=== PATIENT | male | born 1960 | race Caucasian/White ===

== ENCOUNTER 2025-01-08 17:25 | Emergency (ER) | payer MEDICAID ==
[~2025-01-08] VITALS: Ht 188 cm; Wt 75.0 kg
[~2025-01-08 17:25] MED LIST: IBUP-1984 PO
[2025-01-08 17:30] VITALS: BP 110/42; PULSE 85; RESP 18; O2SAT 96
--- NOTE | 2025-01-08 17:47 | Physician Documentation ---
History of Present Illness ~ Chief Complaint: Foot pain Stated Complaint: FOOT PAIN Time Seen by MD: 18:19 Primary Medical Doctor: OOT Mode of Arrival: EMS HPI This is a 64-year-old male who was brought in by EMS for bilateral foot pain, on questioning patient is requesting something to eat otherwise and reports no other symptoms or concerns. Tetanus witin 5 years: Yes Medication Reconciliation Allergies: Coded Allergies: No Known Allergies (Unverified , 01/08/25) Scheduled PRN Ibuprofen* (Motrin*), 800 MG PO BID PRN, (Reported) Past Medical History Past Medical History: Chronic Pain, Chronic Back Pain Past Surgical History: no surgical history Alcohol Use: Alcoholic Drug Use: heroin Lives with: Family Lives In: Home Occupation: disabled Review of Systems ROS Foot pain and hungry as stated above in the HPI, otherwise all systems are reviewed and negative. Physical Exam Vital Signs: Source: Temporal, Heart Rate: 85, Respiratory Rate: 18, BP: 110/42, Pulse Oximetry: 96, Weight: 75.000 Physical Exam VITALS: Reviewed and as above. GENERAL: Alert, nontoxic appearing, no apparent distress. RESPIRATORY: No increased work of breathing, no respiratory distress, speaking in full clear sentences Progress Results/Orders Results/Orders Vital Signs 01/08/25 17:30 Pulse 85 Resp 18 B/P (MAP) 110/42 Pulse Ox 96 Medical Decision Making Findings MSE performed in triage and patient returned to ED lobby by nursing staff. As patient was requesting food he was advised that once he was in emergency department room and a more complete exam completed he would be provided a meal. Patient was seen ambulating with a steady nonpainful non limping gait unassisted in the ER lobby, patient ask the retail security professional for food and became upset when he was not provided food, patient began ambulating out of the ER lobby I called the patient multiple times and asked him if he still wanted to be seen and he continued to ambulate without answering my question. At this time I have no reason to believe an acute medical condition exists and patient was reporting no symptoms. I believe the purpose of the patient's ER visit today was to obtain food as he appears to be un housed. Foot Diff Dx:Considerations: Include: Abrasion, Arthritis, Cellulitis, Contusion, Dislocation, DJD, Fracture-metatarsal, Fracture-phalynx, Fracture- tarsal, Gout, Ingrown toenail, Neurovascular injury, Puncture, Sprain, Septic, Subungual hematoma, Ulcer Departure Disposition: 07 LEFT AWOL/ELOPED Impression: Primary Impression: Foot pain Qualified Codes: M79.671 - Pain in right foot; M79.672 - Pain in left foot Condition: Improved Referrals: NO PRIMARY CARE PROVIDER (PCP) Signature Scribe Signature: No scribe Attestation: The note accurately reflects work and decisions made by me.GIAN Celestin 01/08/25 21:13 RAJEEV GUSTAFSON Jan 08, 2025 17:47
[2025-01-09] MEDS ORDERED: NAPR-56 PO (12:24)
== END 2025-01-08 19:46 | disposition left against medical advice (07) ==
LOC: ER 17:26
DX: M79.671 Pain in right foot (principal); M79.672 Pain in left foot
CPT/HCPCS: 99283

== ENCOUNTER 2025-01-09 11:37 | Emergency (ER) | payer MEDICAID ==
[~2025-01-09] VITALS: Ht 188 cm; Wt 63.6 kg
[2025-01-09 11:46] VITALS: BP 127/83; PULSE 87; RESP 18; TEMP 97.6; O2SAT 98
--- NOTE | 2025-01-09 12:18 | Physician Documentation ---
History of Present Illness ~ Chief Complaint: Foot pain Stated Complaint: SORE FEET Time Seen by MD: 12:01 Primary Medical Doctor: [facility] This 64-year-old on housed male presents with bilateral foot pain, patient reports pain has been present for the past six months patient reports he was taking medicine for his foot pain however he lost the bag continuing the medication in his unable to remember what medication this was. Patient denies past medical history other than he was taking a medication for blood pressure. Patient reports no other acute symptoms or concerns. Tetanus witin 5 years: Yes Medication Reconciliation Allergies: Coded Allergies: No Known Allergies (Unverified , 01/08/25) Scheduled Naproxen (Naproxen), 1 TAB PO Q12H Scheduled PRN Ibuprofen* (Motrin*), 800 MG PO BID PRN, (Reported) Past Medical History Past Medical History: Hypertension, Chronic Pain, Chronic Back Pain Past Surgical History: no surgical history Alcohol Use: Alcoholic Drug Use: heroin Lives with: Family Lives In: Home Occupation: disabled Review of Systems ROS Bilateral foot pain as stated above in the HPI, otherwise all systems are reviewed and negative. Physical Exam Vital Signs: Temperature: 97.6, Source: Temporal, Heart Rate: 87, Respiratory Rate: 18, BP: 127/83, Pulse Oximetry: 98, Weight: 63.640 Physical Exam VITALS: Reviewed and as above. GENERAL: Alert, disheveled, nontoxic appearing, no apparent distress. RESPIRATORY: No increased work of breathing, no respiratory distress, speaking in full clear sentences MUSCULOSKELETAL: Bilateral feet tender to palpation to plantar surfaces, no edema, no erythema, no ecchymosis, no deformity Progress Results/Orders Results/Orders Completed Orders - RAJEEV GUSTAFSON Naproxen Tablet (Naprosyn Tablet) (01/09/25 12:25) Vital Signs 01/09/25 11:46 Temp 97.6 Pulse 87 Resp 18 B/P (MAP) 127/83 Pulse Ox 98 Medical Decision Making Findings This 64-year-old on housed male presented to the emergency department due to six months of bilateral foot pain worse in the soles of his feet, on exam he had tenderness to palpation to bilateral soles of feet with no evidence of swelling, erythema, deformity, ecchymosis, or infection. Capillary refill and pupils intact. Remainder of physical exam was benign. Vital signs stable and patient medicated for pain. Patient is appropriate for outpatient follow up and directed to [facility] to establish primary care. Patient provided prescription for naproxen for chronic foot pain. Patient provided a meal prior discharge and provided return to care precautions. Foot Diff Dx:Considerations: Include: Abrasion, Arthritis, Cellulitis, Contusion, DJD, Gout, Ingrown toenail, Laceration, Neurovascular injury, Sprain, Septic, Ulcer Departure Time of Disposition: 12:24 Disposition: 01 HOME / SELF CARE / HOMELESS Impression: Primary Impression: Foot pain Qualified Codes: M79.671 - Pain in right foot; M79.672 - Pain in left foot Condition: Improved Discharge Instructions: Foot Pain Additional Instructions: Keep your feet clean and dry, change your socks daily (you were provided an extra changes socks to help facilitate this), please use the prescribed naproxen as needed for foot pain. Please follow up with your primary care provider with the [facility] in the next few days for further workup and management of your chronic foot pain. Please return to the emergency department for any new or worsening concerning symptoms. Referrals: NO PRIMARY CARE PROVIDER (PCP) Prescriptions Naproxen (Naproxen) 500 Mg Tablet 1 TAB PO Q12H, #20 TAB Prov: RAJEEV GUSTAFSON 01/09/25 Education Educated: Patient Educated regarding: diagnosis, treatment, prognosis, need for follow up Signature Scribe Signature: No scribe Attestation: The note accurately reflects work and decisions made by me.GIAN Celestin 01/09/25 21:18 RAJEEV GUSTAFSON Jan 09, 2025 12:18
[2025-01-09] MEDS ORDERED: NAPR-56 PO (12:24)
[2025-01-09] MEDS: naproxen 500mg tablet PO ONE (12:42)
[2025-01-10] MEDS ORDERED: CIPR-255 PO (15:49)
[2025-01-10] MEDS ORDERED: DOXY-1 PO (15:49)
== END 2025-01-09 12:46 | disposition home or self-care (01) ==
LOC: ER 11:38
DX: M79.672 Pain in left foot (principal); M79.671 Pain in right foot; I10 Essential (primary) hypertension
CPT/HCPCS: 99282

== ENCOUNTER 2025-01-10 01:11 | Emergency (ER) | payer MEDICAID, OTHER ==
[~2025-01-10] VITALS: Ht 188 cm; Wt 63.6 kg
[~2025-01-10 01:11] MED LIST changes: +NAPR-56 PO
[2025-01-10 01:16] VITALS: BP 130/87; PULSE 82; RESP 15; TEMP 96.7; O2SAT 100
--- NOTE | 2025-01-10 01:19 | Physician Documentation ---
History of Present Illness ~ Chief Complaint: Foot pain Stated Complaint: FEET PAIN Time Seen by MD: 01:18 OK to notify your PCP?: Yes Primary Medical Doctor: none Source: patient Mode of Arrival: Ambulatory Exam Limitations: no limitations HPI 64-year-old homeless male, who has been seen two other times in the last 24 hours for bilateral foot pain and requested food, returns with reports of left toe pain. 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 Patient ambulated into the ED. When questioned more he admits he would like something to eat." He denies any fever. Tetanus witin 5 years: Yes Medication Reconciliation Allergies: Coded Allergies: No Known Allergies (Unverified , 01/10/25) Scheduled Naproxen (Naproxen), 1 TAB PO Q12H Scheduled PRN Ibuprofen* (Motrin*), 800 MG PO BID PRN, (Reported) Past Medical History Past Medical History: Hypertension, Chronic Pain, Chronic Back Pain Past Surgical History: no surgical history Alcohol Use: Alcoholic Drug Use: heroin Lives with: Family Lives In: Home Occupation: disabled Review of Systems All Other Systems at this time: Reviewed and Negative ROS As stated above in the HPI, otherwise all systems are reviewed and negative. Physical Exam Vital Signs: RN Vital Signs have been reviewed: Yes, Temperature: 96.7, Source: Temporal, Heart Rate: 82, Respiratory Rate: 15, BP: 130/87, Pulse Oximetry: 100, Weight: 63.600 Pulse Oximetry Reflects: adequate oxygenation Physical Exam General: The patient is well developed, well nourished, nontoxic appearing and is in no acute distress. Skin: [place], warm and dry with no rashes. HEENT: Head was normocephalic and atraumatic. Extremities: No cyanosis, clubbing or edema. The patient moves all extremities. Pulses were equal and symmetric. Neurologic: Motor and sensation grossly intact. Cranial nerves II-XII grossly intact. A & O x4. Ambulatory. Psychologic: Normal mood and affect. No agitation. Progress Results/Orders Reviewed/noted all lab results: Yes Results/Orders Vital Signs 01/10/25 01:16 Temp 96.7 Pulse 82 Resp 15 B/P (MAP) 130/87 Pulse Ox 100 Re-Evaluation Re-Evaluation : Re-Evaluation: Resolved Progress Patient was seen and examined. Patient admitted that he had no medical complaints that he was here for food. He denies any other complaints at this time. He was wondering if he could have something to drink or eat. Patient was given reassurance and discharged home. We discussed social service issues including the [place]. Medical Decision Making Additional info obtained from: old records (2 other visits in 24 hours) General Diff Dx:Considerations: Include: Abrasion, Contusion, Other Departure Time of Disposition: Disposition: HOME / SELF CARE / HOMELESS Impression: Primary Impression: Hungry Qualified Codes: T73.0XXA - Starvation, initial encounter Additional Impression: Homelessness Condition: Stable Discharge Instructions: General Discharge Instructions Additional Instructions: Return to the ER for other concerns. Education Educated: Patient Educated regarding: diagnosis, treatment, need for follow up Signature Scribe Signature: Scribed for Candido Deluna MD by Tadeo Hoang . 01/10/25 01:22 Attestation: The note accurately reflects work and decisions made by me.Candido Deluna MD 01/10/25 01:19 CANDIDO DELUNA MD January 10, 2025 01:19 TADEO EVANS January 10, 2025 01:26
[2025-01-10] MEDS ORDERED: CIPR-255 PO (15:49)
[2025-01-10] MEDS ORDERED: DOXY-1 PO (15:49)
== END 2025-01-10 01:29 | disposition home or self-care (01) ==
LOC: ER 01:11
DX: T73.0XXA Starvation, initial encounter (principal); I10 Essential (primary) hypertension; G89.29 Other chronic pain; M54.9 Dorsalgia, unspecified; F11.90 Opioid use, unspecified, uncomplicated; F10.90 Alcohol use, unspecified, uncomplicated; Z59.00 Homelessness unspecified; Z79.899 Other long term (current) drug therapy; Y90.9 Presence of alcohol in blood, level not specified; X58.XXXA Exposure to other specified factors, initial encounter
CPT/HCPCS: 99281

== ENCOUNTER 2025-01-10 13:15 | Emergency (ER) | payer MEDICAID, OTHER ==
[~2025-01-10] VITALS: Ht 185.4 cm; Wt 63.5 kg
[2025-01-10 13:20] VITALS: BP 153/74; PULSE 115; RESP 16; O2SAT 95
--- NOTE | 2025-01-10 13:49 | Physician Documentation ---
History of Present Illness ~ Chief Complaint: Wound Re-Check Stated Complaint: REQUESTING FEET TO BE CLEANED Time Seen by MD: 13:23 Primary Medical Doctor: none HPI This 64-year-old un housed male presents back to the emergency department with bilateral foot pain, patient reports he was unable to pickling solution maker his previously prescribed naproxen for foot pain, patient is requesting his feet me cleaned as well. Patient reports no other acute symptoms or concerns. Tetanus within 5 years?: Yes Medication Reconciliation Allergies: Coded Allergies: No Known Allergies (Unverified , 01/10/25) Scheduled Ciprofloxacin HCl (Ciprofloxacin HCl), 1 TAB PO Q12H Doxycycline Hyclate (Doxycycline Hyclate), 1 CAP PO Q12H Naproxen (Naproxen), 1 TAB PO Q12H Scheduled PRN Ibuprofen* (Motrin*), 800 MG PO BID PRN, (Reported) Past Medical History Past Medical History: Hypertension, Chronic Pain, Chronic Back Pain Past Surgical History: no surgical history Alcohol Use: Alcoholic Drug Use: heroin Lives with: Family Lives In: Home Occupation: disabled Review of Systems ROS Bilateral foot pain as stated above in the HPI, otherwise all systems are reviewed and negative. Physical Exam Vital Signs: Temperature: 98.9, Source: Oral, Heart Rate: 115, Respiratory Rate: 16, BP: 153/74, Pulse Oximetry: 95, Weight: 63.500 Oxygen Flow Rate: 0 Physical Exam VITALS: Reviewed and as above. GENERAL: Alert, nontoxic appearing, no apparent distress. RESPIRATORY: No increased work of breathing, no respiratory distress, speaking in full clear sentences GI: Nondistended MUSCULOSKELETAL:Bilateral feet tender to palpation, SKIN: On the skin of plantar aspect of left foot there is some stuck on material versus a scab over a wound. Progress Progress Note After cleaning stuck on material to the bottom of left foot, it appears that this was fecal matter in what appears to be a wound to the area without erythema, swelling, focal tenderness, or discharge. On further questioning patient reports that this wound has been present for at least three months. Results/Orders Results/Orders Orders - RAJEEV GUSTAFSON Foot, Complete (3vw Min) (01/10/25 14:46) Wound Care Orders (01/10/25 14:39) Completed Orders - RAJEEV GUSTAFSON Naproxen Tablet (Naprosyn Tablet) (01/10/25 13:50) Foot, Complete (3vw Min) (01/10/25 14:46) Tetanus/Pertuss/Diph Acell/Pf (Boostrix (01/10/25 14:40) Cbc/Diff (01/10/25 15:04) BMP (01/10/25 15:04) Ciprofloxacin Tablet (Cipro Tablet) (01/10/25 15:05) Doxycycline 100mg Capsule (Vibramycin 10 (01/10/25 15:04) Medications Received in ER Medications (Trade) Dose Ordered Sig/Rayo Route PRN Reason Start Time Stop Time Status Last Admin Dose Admin (Naprosyn tablet) 500 mg ONCE ONCE PO 01/10/25 13:50 01/10/25 13:51 DC 01/10/25 14:15 500 MG (Cipro tablet) 500 mg ONCE ONCE PO 01/10/25 15:05 01/10/25 15:08 DC 01/10/25 15:39 500 MG (VIBRAMYCIN 100mg capsule) 100 mg ONCE STAT PO 01/10/25 15:04 01/10/25 15:09 DC 01/10/25 15:38 100 MG Vital Signs 01/10/25 01/10/25 13:20 16:57 Temp 98.9 98.9 Pulse 115 Resp 16 B/P (MAP) 153/74 Pulse Ox 95 O2 Flow Rate 0 Laboratory Tests Test 01/10/25 15:19 White Blood Count 8.4 Red Blood Count 3.95 L Hemoglobin 11.2 L Hematocrit 34.4 L Mean Corpuscular Volume 87.2 Mean Corpuscular Hemoglobin 28.3 Mean Corpuscular Hemoglobin Concent 32.5 L Red Cell Distribution Width 15.9 H Platelet Count 414 Mean Platelet Volume 6.6 L Neutrophils (%) (Auto) 76.6 H Lymphocytes (%) (Auto) 9.5 L Monocytes (%) (Auto) 11.9 Eosinophils (%) (Auto) 1.4 Basophils (%) (Auto) 0.6 Neutrophils # (Auto) 6.4 Lymphocytes # (Auto) 0.8 L Monocytes # (Auto) 1.0 H Eosinophils # (Auto) 0.1 Basophils # (Auto) 0.0 CBC Comment Sodium Level 143 Potassium Level 3.4 L Chloride Level 106 Carbon Dioxide Level 31.8 Anion Gap 5 L Blood Urea Nitrogen 23 H Creatinine 0.58 L Estimated GFR/1.73 m2 > 90 BUN/Creatinine Ratio 39.7 H Glucose Level 110 H Calcium Level 8.9 Albumin 2.3 L Chemistry Comments EKG/XRAY/CT/US/VASC/MRI Bone/Soft Tissue X-Ray (Ext.) : Additional Comment CLINICAL INDICATION: Deep chronic wound to foot TECHNIQUE: 3 radiographic views of the left foot were obtained. Comparison: None FINDINGS/IMPRESSION: There is no evidence of acute fracture or dislocation. Postop medial osteotomy 1st metatarsal The visualized joint space is well maintained. The alignment is anatomical. There is no radiopaque foreign body. Electronically Signed by:GARY BENITEZ Jr. DO Date & Time: 01/10/25 1513 Dictated by: GARY BENITEZ Jr. DO Dictation date and time: 01/10/25 1445 I have reviewed and agree with the radiology report. I have reviewed and interpreted the imaging as: No fracture or dislocation, no radiopaque foreign body Medical Decision Making Findings This 64-year-old male presented with bilateral foot pain, with what appears to be a chronic poor healing wound observed to the left forefoot, on questioning patient reports that this wound has been present for approximately three months. The wound to the forefoot did appear to be covered in some stuck on material that appears to be a mixture of dirt and possible feces, this was removed and the wound was explored, wound does not appear to be infected as there was no swelling, erythema, or drainage from the wound additionally an x-ray of the foot did not demonstrate a foreign were obtained body or evidence of osteomyelitis. This chronic wound does appear to be slowly healing and patient will be referred to outpatient wound care for further evaluation, as the material removed from the wound appears to be at least partially fecal matter patient will be placed on dual antibiotic coverage. It was reassuring patient's labs did not demonstrate evidence of infection or metabolic derangement. Remainder of physical exam was benign. Was mildly tachycardic on triage though I do attribute this to patient being mildly agitated and argumentative with staff when he presented insisting on getting a meal before being seen though being reportedly told that he must be seen by provider prior to being provided a meal, otherwise patient's vital signs were stable including patient being afebrile. Patient is appropriate for outpatient follow up. Patient provided careful return to care precautions indirect to the nearest pharmacy to pickling solution maker his prescriptions including a previously prescribed pain medication. Patient was provided a meal and offered bus voucher by nursing staff. Differential Dx:Considerations: Include: Abscess, Cellulitis, Dressing change, Healing wound, Other (Osteomyelitis, sepsis, septicemia, malingering, septic joint) Departure Time of Disposition: 14:38 Disposition: HOME / SELF CARE / HOMELESS Impression: Primary Impression: Chronic wound Additional Impression: Foot pain Qualified Codes: M79.671 - Pain in right foot; M79.672 - Pain in left foot Condition: Improved Discharge Instructions: Wound Care, Adult Additional Instructions: Keep the wound on your foot clean, dry, and covered. Please follow up with outpatient wound care about the wound on your left foot. Please take the antibiotics as prescribed. Continue to use the previously prescribed naproxen for your foot pain. Please follow up with your primary care provider or the [facility] in the next few days. Please return to the emergency department for any new or worsening concerning symptoms. Referrals: NO PRIMARY CARE PROVIDER (PCP) [facility] Prescriptions Naproxen (Naproxen) 500 Mg Tablet 1 TAB PO Q12H, #20 TAB Prov: RAJEEV GUSTAFSON 01/10/25 Doxycycline Hyclate (Doxycycline Hyclate) 100 Mg Capsule 1 CAP PO Q12H for 7 Days, #14 CAP Prov: RAJEEV GUSTAFSON 01/10/25 Ciprofloxacin HCl (Ciprofloxacin HCl) 500 Mg Tablet 1 TAB PO Q12H for 7 Days, #14 TAB Prov: RAJEEV GUSTAFSON 01/10/25 Education Educated: Patient Educated regarding: diagnosis, treatment, prognosis, need for follow up Signature Scribe Signature: No scribe Attestation: The note accurately reflects work and decisions made by me.GIAN Celestin 01/10/25 21:48 RAJEEV GUSTAFSON January 10, 2025 13:49
[2025-01-10] MEDS: naproxen 500mg tablet PO ONE (14:15)
--- NOTE | 2025-01-10 15:15 | RADIOLOGY REPORT ---
CLINICAL INDICATION: Deep chronic wound to foot TECHNIQUE: 3 radiographic views of the left foot were obtained. Comparison: None FINDINGS/IMPRESSION: There is no evidence of acute fracture or dislocation. Postop medial osteotomy 1st metatarsal The visualized joint space is well maintained. The alignment is anatomical. There is no radiopaque foreign body.
[2025-01-10] MEDS: DOXYCYCLINE 100MG CAPSULE PO STA (15:38)
[2025-01-10] MEDS: ciprofloxacin 250mg tablet PO ONE (15:39)
[2025-01-10] MEDS: TETanus/Pertussis (Acell)/Diphther VAC/PF (Tdap-Adult) 0.5ml syringe IMVAC ONE (15:40)
[2025-01-10 15:44] LABS: ALBUMIN 2.3 G/DL (3.4-5.0); ANION GAP 5 (8-16); BLOOD UREA NITROGEN 23 MG/DL (7-18); BUN/CREATININE RATIO 39.7 (10.0-20.0); CALCIUM 8.9 MG/DL (8.5-10.1); CHLORIDE 106 MMOL/L (99-107); CREATININE 0.58 MG/DL (0.60-1.10); GLUCOSE 110 MG/DL (70-104); POTASSIUM 3.4 MMOL/L (3.5-5.1); SODIUM 143 MMOL/L (135-145); TOTAL CARBON DIOXIDE 31.8 MMOL/L (24-32); eCRCL 114 ML/MIN; eGFR > 90 ML/MIN
[2025-01-10] MEDS ORDERED: CIPR-255 PO (15:49)
[2025-01-10] MEDS ORDERED: DOXY-1 PO (15:49)
[2025-01-10 16:25] LABS: BASOPHILS % (AUTO) 0.6 % (0-1); EOSINOPHILS # (AUTO) 0.1 X10'3 (0-0.9); EOSINOPHILS % (AUTO) 1.4 % (0-6); HEMATOCRIT 34.4 % (42.0-52.0); HEMOGLOBIN 11.2 g/dl (14.0-17.9); LYMPHOCYTES # (AUTO) 0.8 X10'3 (1.1-4.8); LYMPHOCYTES % (AUTO) 9.5 % (21-51); MEAN CORPUSCULAR HEMOGLOBIN 28.3 PG (27.0-31.0); MEAN CORPUSCULAR HGB CONC 32.5 g/dL (33.0-36.5); MEAN CORPUSCULAR VOLUME 87.2 FL (78-98); MEAN PLATELET VOLUME 6.6 FL (7.4-10.4); MONOCYTES % (AUTO) 11.9 % (2-12); NEUTROPHILS # (AUTO) 6.4 X10'3 (1.8-7.7); NEUTROPHILS % (AUTO) 76.6 % (42-75); PLATELET COUNT 414 X10'3 (140-440); RED BLOOD COUNT 3.95 X10'6 (4.70-6.10); RED CELL DISTRIBUTION WIDTH 15.9 % (11.5-14.5); WHITE BLOOD COUNT 8.4 X10'3 (4.5-11.0)
[2025-01-10 16:57] VITALS: TEMP 98.9
== END 2025-01-10 16:59 | disposition home or self-care (01) ==
LOC: ER 13:16
DX: M79.672 Pain in left foot (principal); G89.29 Other chronic pain; M54.9 Dorsalgia, unspecified; I10 Essential (primary) hypertension; F11.90 Opioid use, unspecified, uncomplicated; F10.90 Alcohol use, unspecified, uncomplicated; Z59.00 Homelessness unspecified; Z79.899 Other long term (current) drug therapy; Y90.9 Presence of alcohol in blood, level not specified
CPT/HCPCS: 36415; 73630; 80048; 85025; 99284

== ENCOUNTER 2025-01-12 13:09 | Emergency (ER) | payer MEDICAID ==
[~2025-01-12] VITALS: Ht 185.4 cm; Wt 64.7 kg
[~2025-01-12 13:09] MED LIST changes: +CIPR-255 PO; +DOXY-1 PO
[2025-01-12 13:33] VITALS: BP 129/76; PULSE 108; RESP 18; TEMP 96.8; O2SAT 96
--- NOTE | 2025-01-12 13:46 | ELECTROCARDIOGRAPH REPORT ---
[facility] Test Date: 2025-01-12 Test Time: 13:43:59 Pat Name: AGUEDAHenrietta MEEHAN Department: EMERGENCY ROOM Patient ID: [id number] Room: Gender: M Transportation Specialist: STUDENT : 1960 Requested By: RADHA GIBBONS Order Number: [id number] Reading MD: Dr. Candido Kinney Measurements Intervals [place] Rate: 109 P: 81 WV: 164 QRS: -70 QRSD: 133 T: 109 QT: 359 QTc: 484 Interpretive Statements Sinus tachycardia Right bundle branch block LVH with IVCD and secondary repol abnrm Borderline prolonged QT interval Electronically Signed On 01-12-2025 18:45:[address] Candido Kinney Please click the below link to view image of tracing.
[2025-01-12 14:09] LABS: BASOPHILS # (AUTO) 0.1 X10'3 (0-0.2); BASOPHILS % (AUTO) 0.7 % (0-1); EOSINOPHILS # (AUTO) 0.2 X10'3 (0-0.9); EOSINOPHILS % (AUTO) 1.8 % (0-6); HEMOGLOBIN 12.4 g/dl (14.0-17.9); LYMPHOCYTES # (AUTO) 1.1 X10'3 (1.1-4.8); LYMPHOCYTES % (AUTO) 11.2 % (21-51); MEAN CORPUSCULAR HEMOGLOBIN 28.6 PG (27.0-31.0); MEAN CORPUSCULAR HGB CONC 32.7 g/dL (33.0-36.5); MEAN CORPUSCULAR VOLUME 87.5 FL (78-98); MEAN PLATELET VOLUME 6.2 FL (7.4-10.4); MONOCYTES # (AUTO) 0.8 X10'3 (0-0.9); MONOCYTES % (AUTO) 8.2 % (2-12); NEUTROPHILS # (AUTO) 7.4 X10'3 (1.8-7.7); NEUTROPHILS % (AUTO) 78.1 % (42-75); PLATELET COUNT 457 X10'3 (140-440); RED BLOOD COUNT 4.35 X10'6 (4.70-6.10); RED CELL DISTRIBUTION WIDTH 16.2 % (11.5-14.5); WHITE BLOOD COUNT 9.5 X10'3 (4.5-11.0)
--- NOTE | 2025-01-12 14:25 | RADIOLOGY REPORT ---
CHEST RADIOGRAPH Indication: CP Technique: Single frontal view of the chest was obtained Comparison: None FINDINGS: Lines and Tubes: None Lungs: 5.9 x 5.4 cm masslike density of the left mid lung zone. Hyperinflation of the lungs. Pleura: No effusion. No pneumothorax. Cardiomediastinal contours: Unremarkable Bones: No acute osseous abnormality. IMPRESSION: 5.9 x 5.4 cm masslike density of the left mid lung zone. CT is recommended for further evaluation.
[2025-01-12 14:27] LABS: ALANINE AMINOTRANSFERASE 68 U/L (12-78); ALBUMIN 2.6 G/DL (3.4-5.0); ALBUMIN/GLOBULIN RATIO 0.5 (1.1-1.5); ALKALINE PHOSPHATASE 94 IU/L (46-116); ANION GAP 8 (8-16); ASPARTATE AMINO TRANSFERASE 72 U/L (10-37); BILIRUBIN,TOTAL 0.2 MG/DL (0.1-1.0); BLOOD UREA NITROGEN 20 MG/DL (7-18); BUN/CREATININE RATIO 30.3 (10.0-20.0); CALCIUM 9.1 MG/DL (8.5-10.1); CHLORIDE 103 MMOL/L (99-107); CREATININE 0.66 MG/DL (0.60-1.10); GLUCOSE 85 MG/DL (70-104); POTASSIUM 3.7 MMOL/L (3.5-5.1); SODIUM 142 MMOL/L (135-145); TOTAL PROTEIN 7.8 G/DL (6.4-8.2); eCRCL 102 ML/MIN; eGFR > 90 ML/MIN
[2025-01-12 14:34] LABS: PRO BRAIN NATRIURETIC PEPTIDE 2330 PG/ML (0-125)
== END 2025-01-12 16:42 | disposition left against medical advice (07) ==
LOC: ER 13:09
DX: R07.9 Chest pain, unspecified (principal); Z53.21 Procedure and treatment not carried out due to patient leaving prior to being seen by health care provider
CPT/HCPCS: 36415; 71045; 80053; 83880; 84484; 85025; 93005

== ENCOUNTER 2025-01-15 14:05 | Emergency (ER) | payer MEDICAID ==
[~2025-01-15] VITALS: Ht 185.4 cm; Wt 81.8 kg
[~2025-01-15 14:05] MED LIST changes: -CIPR-255 PO; -DOXY-1 PO; -IBUP-1984 PO
[2025-01-15 14:07] VITALS: BP 98/66; PULSE 114; RESP 16; TEMP 98.5; O2SAT 95
--- NOTE | 2025-01-15 14:50 | Physician Documentation ---
History of Present Illness ~ General Chief Complaint: Multiple Medical Complaints Stated Complaint: RECHECK Primary Medical Doctor: none History of Present Illness Initial Comments This 64-year-old male who is well known to the emergency department presents with multiple medical complaints including chronic foot pain and needing to meet with social research assistant for placement in a fdc house. Medication Reconciliation Allergies: Coded Allergies: No Known Allergies (Unverified , 01/15/25) Scheduled Naproxen (Naproxen), 1 TAB PO Q12H Discontinued Medications Ciprofloxacin HCl (Ciprofloxacin HCl), 1 TAB PO Q12H Discontinued Reason: patient no longer taking Doxycycline Hyclate (Doxycycline Hyclate), 1 CAP PO Q12H Discontinued Reason: patient no longer taking Ibuprofen* (Motrin*), 800 MG PO BID PRN, (Reported) Discontinued Reason: patient no longer taking Past Medical History Past Medical History: Hypertension, Chronic Pain, Chronic Back Pain Past Surgical History: no surgical history Alcohol Use: Alcoholic Drug Use: heroin Lives with: Family Lives In: Home Occupation: disabled Physical Exam Physical Exam Vital Signs: Temperature: 98.5, Heart Rate: 114, Respiratory Rate: 16, BP: 98/66, Pulse Oximetry: 95, Weight: 81.820 Physical Exam VITALS: Reviewed and as above. GENERAL: Alert, nontoxic appearing, no apparent distress. HEENT: RESPIRATORY: No increased work of breathing, no respiratory distress, speaking in full clear sentences CHEST: CV: BACK: GI: Nondistended MUSCULOSKELETAL: SKIN: NEURO: PSYCH: Progress Results/Orders Results/Orders Vital Signs 01/15/25 14:07 Temp 98.5 Pulse 114 Resp 16 B/P (MAP) 98/66 Pulse Ox 95 Medical Decision Making Findings MSE performed in triage and patient returned to ED lobby by nursing staff Differential Diagnosis Malingering, cellulitis, peripheral neuropathy, gravely disabled Departure Disposition: LEFT AWOL/ELOPED Impression: Primary Impression: Hungry Qualified Codes: T73.0XXD - Starvation, subsequent encounter Additional Impressions: Homelessness Chronic foot pain Qualified Codes: M79.673 - Pain in unspecified foot; G89.29 - Other chronic pain Referrals: NO PRIMARY CARE PROVIDER (PCP) Signature Scribe Signature: No scribe Attestation: The note accurately reflects work and decisions made by me.GIAN Celestin 01/16/25 04:12 RAJEEV GUSTAFSON January 15, 2025 14:50
== END 2025-01-15 17:02 | disposition left against medical advice (07) ==
LOC: ER 14:05
DX: G89.29 Other chronic pain (principal); M79.673 Pain in unspecified foot; T73.0XXA Starvation, initial encounter; Z59.00 Homelessness unspecified; I10 Essential (primary) hypertension; X58.XXXA Exposure to other specified factors, initial encounter; Y93.89 Activity, other specified; Y92.89 Other specified places as the place of occurrence of the external cause; Y99.8 Other external cause status
CPT/HCPCS: 99281

== ENCOUNTER 2025-01-15 19:22 | Emergency (ER) | payer MEDICAID ==
[~2025-01-15] VITALS: Ht 185.4 cm; Wt 65.2 kg
[2025-01-15 20:24] VITALS: BP 123/67; PULSE 117; RESP 15; TEMP 98.9; O2SAT 97
--- NOTE | 2025-01-15 21:50 | Physician Documentation ---
History of Present Illness General Chief Complaint: See Chief Complaint Stated Complaint: ETOH Time Seen by MD: 21:10 Primary Medical Doctor: none History of Present Illness Initial Comments This is a 64-year-old male who is well known to the Department, patient reports that he was recently discharged after a hospital stay and was told to return to talk to a case assistant about placement in a prison home, reports he has no new medical concerns and only reports chronic pain which he has been prescribed medications for, patient was seen earlier today though eloped from the lobby after being seen in triage for the same complaint. Medication Reconciliation Allergies: Coded Allergies: No Known Allergies (Unverified , 01/15/25) Scheduled Naproxen (Naproxen), 1 TAB PO Q12H Discontinued Medications Ciprofloxacin HCl (Ciprofloxacin HCl), 1 TAB PO Q12H Discontinued Reason: patient no longer taking Doxycycline Hyclate (Doxycycline Hyclate), 1 CAP PO Q12H Discontinued Reason: patient no longer taking Ibuprofen* (Motrin*), 800 MG PO BID PRN, (Reported) Discontinued Reason: patient no longer taking Past Medical History Past Medical History: Hypertension, Chronic Pain, Chronic Back Pain Past Surgical History: no surgical history Smoking: Cigarettes Alcohol Use: Alcoholic Drug Use: heroin Lives with: Family Lives In: Home Occupation: disabled Review of Systems ROS As stated above in the HPI, otherwise all systems are reviewed and negative. Physical Exam Physical Exam Vital Signs: Temperature: 98.9, Source: Oral, Heart Rate: 117, Respiratory Rate: 15, BP: 123/67, Pulse Oximetry: 97, Weight: 65.180 Oxygen Flow Rate: 0 Physical Exam VITALS: Reviewed and as above. GENERAL: Alert, nontoxic appearing, no apparent distress. RESPIRATORY: No increased work of breathing, no respiratory distress, speaking in full clear sentences Progress Results/Orders Results/Orders Vital Signs 01/15/25 20:24 Temp 98.9 Pulse 117 Resp 15 B/P (MAP) 123/67 Pulse Ox 97 O2 Flow Rate 0 Medical Decision Making Findings This 64-year-old male presented back to the emergency department to talk to a case assistant about placement in a prison house, however he presented after hours, patient has been seen earlier today and was waiting in the emergency department lobby to be seen for the same concern during business hours. Patient advised that he would need to return during business hours if he wanted to talk to the case assistant. Patient was very upset and disruptive with nursing staff wishing to leave after being told he would not be able to meet with case assistant today. As patient reported no new concerns or symptoms plan was for him to be discharged to follow up as previously directed, though on review of patient's previous notes it was discovered patient did leave AMA and has history of PE, as patient did not wait for records review or discharge paperwork patient has eloped. Differential Diagnosis Chronic foot pain, malingering, pulmonary embolism, OR, gravely disabled Departure Disposition: LEFT AWOL/ELOPED Impression: Primary Impression: Homelessness Additional Impression: Hungry Qualified Codes: T73.0XXD - Starvation, subsequent encounter Condition: Stable Referrals: NO PRIMARY CARE PROVIDER (PCP) Signature Scribe Signature: No scribe Attestation: The note accurately reflects work and decisions made by me.GIAN Celestin 01/16/25 03:49 RAJEEV GUSTAFSON January 15, 2025 21:50
== END 2025-01-16 01:18 | disposition left against medical advice (07) ==
LOC: ER 19:22
DX: T73.0XXA Starvation, initial encounter (principal); I10 Essential (primary) hypertension; F10.90 Alcohol use, unspecified, uncomplicated; F17.210 Nicotine dependence, cigarettes, uncomplicated; Z59.00 Homelessness unspecified; X58.XXXA Exposure to other specified factors, initial encounter; Y90.9 Presence of alcohol in blood, level not specified
CPT/HCPCS: 99284

== ENCOUNTER 2025-04-03 19:10 | Emergency (ER) | payer MEDICAID ==
[2025-04-04] MEDS ORDERED: SULF1TAB49 PO (01:44)
[2025-04-04] MEDS ORDERED: NAPR-56 PO (01:44)
== END 2025-04-03 20:46 | disposition left against medical advice (07) ==
LOC: ER 19:10
DX: Z00.8 Encounter for other general examination (principal); Z53.21 Procedure and treatment not carried out due to patient leaving prior to being seen by health care provider

== ENCOUNTER 2025-04-03 22:15 | Emergency (ER) | payer MEDICAID ==
[~2025-04-03] VITALS: Ht 185.4 cm; Wt 63.6 kg
[2025-04-03 22:48] VITALS: BP 139/73; PULSE 89; RESP 16; O2SAT 95
--- NOTE | 2025-04-04 01:37 | Physician Documentation ---
History of Present Illness ~ Chief Complaint: Foot pain Stated Complaint: FEET PAIN Time Seen by MD: 01:36 OK to notify your PCP?: Yes Primary Medical Doctor: none Source: patient, RN/MD, EMS, RN notes reviewed, EMS notes reviewed, old records Mode of Arrival: EMS Exam Limitations: no limitations HPI 65 year old male seen in bed 18 presents to the emergency department for the complaints of bilateral foot pain that has been present for three days. He states he is homeless and his feet hurt on the bottom when he is walking. Tetanus witin 5 years: Yes Medication Reconciliation Allergies: Coded Allergies: No Known Allergies (Unverified , 04/03/25) Scheduled Naproxen (Naproxen), 1 TAB PO Q12H Naproxen (Naproxen), 1 TAB PO Q12H Sulfamethoxazole/Trimethoprim (Bactrim Ds Tablet), 1 TAB PO Q12H Past Medical History Past Medical History: Hypertension, Chronic Pain, Chronic Back Pain Past Surgical History: no surgical history Smoking Status: Current every day smoker Alcohol Use: Alcoholic Drug Use: heroin Lives with: Family Lives In: Home Occupation: disabled Review of Systems All Other Systems at this time: Reviewed and Negative ROS As stated above in the HPI, otherwise all systems are reviewed and negative. Physical Exam Vital Signs: RN Vital Signs have been reviewed: Yes, Temperature: 97.8, Source: Temporal, Heart Rate: 89, Respiratory Rate: 16, BP: 139/73, Pulse Oximetry: 95, Weight: 63.600 Oxygen Flow Rate: 0 Pulse Oximetry Reflects: adequate oxygenation Physical Exam General: The patient is well developed, well nourished, nontoxic appearing and is in no acute distress. Skin: [place], warm and dry with no rashes. HEENT: Head was normocephalic and atraumatic. Eyes - pupils equal, round, reactive to light and accommodation. Extraocular movements were intact. Conjunctivae were nonicteric. Ears - bilateral tympanic membranes were normal. The mouth and oropharynx were clear with moist mucous membranes. There were no pharyngeal exudates or erythema. Neck: Supple and nontender. There was no jugular venous distention, lymphadenopathy, thyromegaly or masses. Chest: Clear to auscultation bilaterally without wheezes, rales or rhonchi. No accessory muscle use. No dullness to percussion. Heart: Rate regular and rhythmic. S1, S2. No murmurs. Palpation of the chest wall was normal. No rubs or thrills. Abdomen: Soft, nontender and nondistended. Positive bowel sounds. No guarding or rebound. No hepatosplenomegaly or palpable masses. Extremities: Discharge from second toe on the right foot, Right great toe is amputated. No cyanosis, clubbing or edema. The patient moves all extremities. Pulses were equal and symmetric. Neurologic: Cranial nerves II-XII were intact. Sensation was intact to light touch throughout. Motor strength was 5/5 in all four extremities. Deep tendon reflexes were intact in both upper and lower extremities. Psychologic: The patient was oriented to person, place and time. The patient demonstrated appropriate judgement and insight. Progress Results/Orders Reviewed/noted all lab results: Yes Results/Orders Completed Orders - CANDIDO DELUNA MD Naproxen Tablet (Naprosyn Tablet) (04/04/25 01:45) Sulfamethox/Trimetho. Ds Tab (Septra Ds (04/04/25 01:45) Medications Received in ER Medications (Trade) Dose Ordered Sig/Rayo Route PRN Reason Start Time Stop Time Status Last Admin Dose Admin (Naprosyn tablet) 500 mg ONCE ONCE PO 04/04/25 01:45 04/04/25 01:46 DC 04/04/25 01:49 500 MG (Septra DS tab) 1 tab ONCE ONCE PO 04/04/25 01:45 04/04/25 01:46 DC 04/04/25 01:50 1 TAB Vital Signs 04/03/25 04/04/25 22:48 02:03 Temp 97.8 97.8 Pulse 89 Resp 16 B/P (MAP) 139/73 Pulse Ox 95 O2 Flow Rate 0 Re-Evaluation Re-Evaluation : Re-Evaluation: Improved Progress Patient was seen and examined. Patient is given reassurance. Patient appeared to be developing possible cellulitis on his great toe although it was not really that significant. Nevertheless he is homeless and has a difficult time seeing physicians. Patient was started on antibiotics. He received Bactrim as well as some naproxen for pain. Patient was given a prescription for the same he is feeling much better he was discharged home to follow up with his primary care physician as needed. Medical Decision Making Additional info obtained from: old records Foot Diff Dx:Considerations: Include: Abrasion, Arthritis, Cellulitis, Contusion, Dislocation, DJD, Fracture-metatarsal, Fracture-phalynx, Fracture- tarsal, Gout, Ingrown toenail, Paronychia, Puncture, Sprain, Septic, Other Departure Time of Disposition: 01:55 Disposition: 01 HOME / SELF CARE / HOMELESS Impression: Primary Impression: Bilateral foot pain Additional Impression: Cellulitis of great toe of right foot Condition: Stable Discharge Instructions: Cellulitis Referrals: NO PRIMARY CARE PROVIDER (PCP) Prescriptions Naproxen (Naproxen) 500 Mg Tablet 1 TAB PO Q12H, #20 TAB Prov: CANDIDO DELUNA MD 04/04/25 Sulfamethoxazole/Trimethoprim (Bactrim Ds Tablet) 800 Mg-160 Mg Tablet 1 TAB PO Q12H for 7 Days, #14 TAB Prov: CANDIDO DELUNA MD 04/04/25 Education Educated: Patient Educated regarding: diagnosis, treatment, prognosis Signature Scribe Signature: Scribed for Candido Deluna MD by Jose Hoang . 04/04/25 01:55 Attestation: The note accurately reflects work and decisions made by me.Candido Deluna MD 04/04/25 01:37 CANDIDO DELUNA MD Apr 04, 2025 01:37 JOSE GUNDERSON Apr 04, 2025 01:56
[2025-04-04] MEDS ORDERED: SULF1TAB49 PO (01:44)
[2025-04-04] MEDS ORDERED: NAPR-56 PO (01:44)
[2025-04-04] MEDS: sulfamethoxazole/trimethoprim DS (800/160mg) tablet PO ONE (01:50)
[2025-04-04 02:03] VITALS: TEMP 97.8
== END 2025-04-04 02:08 | disposition home or self-care (01) ==
LOC: ER 22:16
DX: M79.671 Pain in right foot (principal); M79.672 Pain in left foot; L03.031 Cellulitis of right toe; F17.200 Nicotine dependence, unspecified, uncomplicated; I10 Essential (primary) hypertension
CPT/HCPCS: 99283

== ENCOUNTER 2025-04-05 17:02 | Emergency (ER) | payer MEDICAID ==
[~2025-04-05 17:02] MED LIST changes: +SULF1TAB49 PO
--- NOTE | 2025-04-05 17:25 | Physician Documentation ---
History of Present Illness ~ General Stated Complaint: SEE CHIEF COMPLAINT Time Seen by MD: 17:21 Primary Medical Doctor: none History of Present Illness Initial Comments Patient is seen today without any specific complaints. Patient was brought in by ambulance and is very agitated and begin altered gating with the security guards and was escorted out. Patient appeared to be in no acute distress. Medication Reconciliation Allergies: Coded Allergies: No Known Allergies (Unverified , 04/03/25) Scheduled Naproxen (Naproxen), 1 TAB PO Q12H Naproxen (Naproxen), 1 TAB PO Q12H Sulfamethoxazole/Trimethoprim (Bactrim Ds Tablet), 1 TAB PO Q12H Past Medical History Past Medical History: Hypertension, Chronic Pain, Chronic Back Pain Past Surgical History: no surgical history Alcohol Use: Alcoholic Drug Use: heroin Lives with: Family Lives In: Home Occupation: disabled Review of Systems Constitutional: Denies: chills, fever, weakness Eyes: Denies: pain, blurred vision ENT: Denies: ear pain, nose pain, throat pain, mouth pain Respiratory: Denies: cough, shortness of breath Cardiovascular: Denies: chest pain, palpitations Gastrointestinal: Denies: abdominal pain, nausea, vomiting Genitourinary: Denies: burning, dysuria Male Genitalia: Denies: penile discharge, testicular pain Neurological: Denies: headache, dizziness Musculoskeletal: Denies: pain, swelling Integumentary: Denies: rash, lesions Allergic/Immunologic: Denies: hives, itching Hematologic/Lymphatic: Denies: no symptoms reported Psychiatric: Denies: depression, anxiety Physical Exam Physical Exam Physical Exam General: Awake, no acute distress. HEENT: Conjunctiva pink, Sclera clear, Mucus Membranes moist. Neck: Supple without masses and tenderness. Resp: Unlabored. Extremities: No cyanosis,clubbing or edema. Skin: Warm and Dry. Medical Decision Making Findings Patient is seen today without any specific complaints. Patient was brought in by ambulance and is very agitated and begin altered gating with the security guards and was escorted out. Patient appeared to be in no acute distress. Patient was escorted out by security prior to any meaningful exam being done. P atient will return to ED with any worsening, concerning or changing symptoms. Departure Disposition: LEFT AWOL/ELOPED Impression: Primary Impression: General medical exam Condition: Stable Additional Instructions: Patient was escorted out by security prior to any meaningful exam being done. Patient will return to ED with any worsening, concerning or changing symptoms. Referrals: NO PRIMARY CARE PROVIDER (PCP) Signature Scribe Signature: No scribe Attestation: No scribe TESS SERNA PAC Apr 05, 2025 17:25
== END 2025-04-05 17:22 | disposition left against medical advice (07) ==
LOC: ER 17:03
DX: Z00.8 Encounter for other general examination (principal); R45.1 Restlessness and agitation; I10 Essential (primary) hypertension
CPT/HCPCS: 99283

== ENCOUNTER 2025-04-05 20:28 | Emergency (ER) | payer MEDICAID ==
[~2025-04-05] VITALS: Ht 177.8 cm; Wt 67.0 kg
[2025-04-05 20:31] VITALS: TEMP 98
--- NOTE | 2025-04-05 22:54 | RADIOLOGY REPORT ---
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 There is no evidence of acute fracture or dislocation. Plantar and retrocalcaneal enthesopathy. Soft tissues are unremarkable.
--- NOTE | 2025-04-06 01:07 | Physician Documentation ---
History of Present Illness ~ Chief Complaint: Foot pain Stated Complaint: PAIN Time Seen by MD: 01:03 OK to notify your PCP?: Yes Primary Medical Doctor: none Source: patient, RN/MD, EMS, RN notes reviewed, old records Mode of Arrival: EMS Exam Limitations: no limitations HPI 65 year old male presents to the emergency department seen in bed 09 for complaints of foot pain. He states that his feet are in pain. Patient is intoxicated on presentation and endorses smoking and homelessness. He is currently taking Bactrim for the infection in his foot. Tetanus witin 5 years: Yes Medication Reconciliation Allergies: Coded Allergies: No Known Allergies (Unverified , 04/03/25) Scheduled Naproxen (Naproxen), 1 TAB PO Q12H Naproxen (Naproxen), 1 TAB PO Q12H Sulfamethoxazole/Trimethoprim (Bactrim Ds Tablet), 1 TAB PO Q12H Past Medical History Past Medical History: Hypertension, Chronic Pain, Chronic Back Pain Past Surgical History: no surgical history Alcohol Use: Alcoholic Drug Use: heroin Lives with: Family Lives In: Home Occupation: disabled Review of Systems All Other Systems at this time: Reviewed and Negative ROS As stated above in the HPI, otherwise all systems are reviewed and negative. Physical Exam Vital Signs: RN Vital Signs have been reviewed: Yes, Temperature: 98.0, Source: Oral, Heart Rate: 79, Respiratory Rate: 16, BP: 145/77, Pulse Oximetry: 98, Weight: 67.000 Oxygen Flow Rate: 0 Pulse Oximetry Reflects: adequate oxygenation Physical Exam General: Smell of alcohol on breath. The patient is well developed, well nourished, nontoxic appearing and is in no acute distress. Skin: [place], warm and dry with no rashes. HEENT: Head was normocephalic and atraumatic. Eyes - pupils equal, round, r eactive to light and accommodation. Extraocular movements were intact. Conjunctivae were nonicteric. Ears - bilateral tympanic membranes were normal. The mouth and oropharynx were clear with moist mucous membranes. There were no pharyngeal exudates or erythema. Neck: Supple and nontender. There was no jugular venous distention, lymphadenopathy, thyromegaly or masses. Chest: Clear to auscultation bilaterally without wheezes, rales or rhonchi. No accessory muscle use. No dullness to percussion. Heart: Rate regular and rhythmic. S1, S2. No murmurs. Palpation of the chest wall was normal. No rubs or thrills. Abdomen: Soft, nontender and nondistended. Positive bowel sounds. No guarding or rebound. No hepatosplenomegaly or palpable masses. Extremities: Amputated right great toe. No cyanosis, clubbing or edema. The patient moves all extremities. Pulses were equal and symmetric. Neurologic: Cranial nerves II-XII were intact. Sensation was intact to light touch throughout. Motor strength was 5/5 in all four extremities. Deep tendon reflexes were intact in both upper and lower extremities. Psychologic: The patient was oriented to person, place and time. The patient demonstrated appropriate judgement and insight. Progress Results/Orders Reviewed/noted all lab results: Yes Results/Orders Orders - KIRSTIN DELUNA MD, Complete (3vw Min) (04/05/25 21:14) Svn Treatment (04/06/25 02:24) Completed Orders - KIRSTIN DELUNA MD, Complete (3vw Min) (04/05/25 21:14) Cbc/Diff (04/06/25 01:12) Ethanol (04/06/25 01:12) BMP (04/06/25 01:12) Naproxen Tablet (Naprosyn Tablet) (04/06/25 01:15) Ipratropium/Albuterol Nebule (Ipratrop/A (04/06/25 02:25) Magnesium Oxide Tablet (Mag-Ox 400mg Tab (04/06/25 02:30) Potassium Cl Sr Tablet (K-Dur Tablet) (04/06/25 02:26) Vital Signs 04/05/25 04/05/25 04/05/25 04/05/25 20:31 21:21 21:22 22:22 Temp 98.0 Pulse 90 90 90 Resp 12 16 20 20 B/P (MAP) 106/63 108/62 (77) 130/65 (86) Pulse Ox 98 100 98 O2 Flow Rate 0 04/05/25 04/06/25 04/06/25 04/06/25 23:29 01:29 02:39 02:40 Pulse 79 88 88 83 Resp 16 16 14 14 B/P (MAP) 145/77 (99) 144/74 (97) Pulse Ox 98 98 95 O2 Delivery Room Air* Room Air O2 Flow Rate 0 FiO2 21 21 04/06/25 02:58 Pulse 86 Resp 16 B/P (MAP) 132/78 Pulse Ox 98 Laboratory Tests Test 04/06/25 01:26 White Blood Count 4.4 L Red Blood Count 4.26 L Hemoglobin 13.1 L Hematocrit 40.1 L Mean Corpuscular Volume 94.0 Mean Corpuscular Hemoglobin 30.8 Mean Corpuscular Hemoglobin Concent 32.7 L Red Cell Distribution Width 15.8 H Platelet Count 210 Mean Platelet Volume 6.9 L Neutrophils (%) (Auto) 52.0 Lymphocytes (%) (Auto) 29.5 Monocytes (%) (Auto) 13.6 H Eosinophils (%) (Auto) 3.7 Basophils (%) (Auto) 1.2 H Neutrophils # (Auto) 2.3 Lymphocytes # (Auto) 1.3 Monocytes # (Auto) 0.6 Eosinophils # (Auto) 0.2 Basophils # (Auto) 0.1 CBC Comment Sodium Level 139 Potassium Level 3.3 L Chloride Level 105 Carbon Dioxide Level 27.9 Anion Gap 6 L Blood Urea Nitrogen 15 Creatinine 0.70 Estimated GFR/1.73 m2 > 90 BUN/Creatinine Ratio 21.4 H Glucose Level 86 Calcium Level 8.5 Albumin 2.8 L Chemistry Comments Ethyl Alcohol Level 68 H Re-Evaluation Re-Evaluation : Re-Evaluation: Unchanged Progress This homeless medically noncompliant patient keeps returning to the ER for re- evaluation food and isn't picking up his prescriptions for his chronic pain. Patient was evaluated there was no significant signs of infection. Does have some blisters otherwise appears well. Patient again was given reassurance and discharged home. Patient did have a workup to make sure that there were no signs of infection his CBC was reassuring with a WBC of 4.4. Patient's alcohol level was elevated at 68. Chemistry was also within normal limits borderline potassium low at 3.3. Patient received magnesium potassium naproxen and a presc ription for naproxen. Patient at one point stated he was having some difficulty breathing questionable wheeze received a nebulized treatment and was discharged home. Medical Decision Making Additional info obtained from: old records Foot Diff Dx:Considerations: Include: Abrasion, Arthritis, Cellulitis, Contusion, DJD, Fracture-metatarsal, Fracture-phalynx, Fracture-tarsal, Gout, Hematoma, Ingrown toenail, Rheumatoid, Sprain, Septic, Other Departure Time of Disposition: 01:19 Disposition: 01 HOME / SELF CARE / HOMELESS Impression: Primary Impression: Chronic foot pain Qualified Codes: M79.673 - Pain in unspecified foot; G89.29 - Other chronic pain Additional Impression: Alcohol intoxication Qualified Codes: F10.920 - Alcohol use, unspecified with intoxication, uncomplicated Condition: Stable Discharge Instructions: Cellulitis Additional Instructions: follow up with primary care. You need to stop drinking. Referrals: NO PRIMARY CARE PROVIDER (PCP) Education Educated: Patient Educated regarding: diagnosis, treatment, prognosis, need for follow up Signature Scribe Signature: Scribed for Kirstin Deluna MD by Nhi Hoang . 04/06/25 01:19 Attestation: The note accurately reflects work and decisions made by me.Kirstin Deluna MD 04/06/25 19:04 KIRSTIN DELUNA MD Apr 06, 2025 01:07 NHI GUNDERSON Apr 06, 2025 01:19
[2025-04-06 01:59] LABS: CREATININE 0.70 MG/DL (0.60-1.10); ETHANOL 68 MG/DL (<10); TOTAL CARBON DIOXIDE 27.9 MMOL/L (24-32); eCRCL 98 ML/MIN; eGFR > 90 ML/MIN
[2025-04-06 02:12] LABS: MEAN PLATELET VOLUME 6.9 FL (7.4-10.4); RED CELL DISTRIBUTION WIDTH 15.8 % (11.5-14.5)
[2025-04-06] MEDS: ipratropium/albuterol 3ml nebule NEB ONE (02:37)
[2025-04-06 02:39] VITALS: PULSE 88; RESP 14; O2SAT 95
[2025-04-06 02:40] VITALS: PULSE 83; RESP 14
[2025-04-06 02:58] VITALS: BP 132/78; PULSE 86; RESP 16; O2SAT 98
[2025-04-06] MEDS: potassium Cl 20 mEq SR tablet PO STA (02:58)
== END 2025-04-06 02:59 | disposition home or self-care (01) ==
LOC: ER 20:28
DX: F10.129 Alcohol abuse with intoxication, unspecified (principal); G89.29 Other chronic pain; M79.671 Pain in right foot; I10 Essential (primary) hypertension; F17.200 Nicotine dependence, unspecified, uncomplicated; Z79.2 Long term (current) use of antibiotics; Z59.00 Homelessness unspecified; Y90.8 Blood alcohol level of 240 mg/100 ml or more
CPT/HCPCS: 36415; 73630; 80048; 80320; 85025; 94640; 99285

== ENCOUNTER 2025-04-06 17:44 | Emergency (ER) | payer MEDICAID ==
[~2025-04-06] VITALS: Ht 177.8 cm; Wt 68.0 kg
[2025-04-06 17:59] VITALS: BP 154/84; PULSE 92; RESP 18; O2SAT 99
--- NOTE | 2025-04-06 18:44 | Physician Documentation ---
History of Present Illness ~ Chief Complaint: Rib pain Stated Complaint: SHARP PAIN IN MY RIBS Time Seen by MD: 18:34 OK to notify your PCP?: Yes Primary Medical Doctor: none Source: patient, RN/MD, RN notes reviewed, old records Mode of Arrival: POV Exam Limitations: no limitations Tetanus within 5 Years?: Yes Allergies: Coded Allergies: No Known Allergies (Unverified , 04/03/25) Active Prescriptions See Medication Reconciliation Form. Medication Reconciliation Scheduled Naproxen (Naproxen), 1 TAB PO Q12H Naproxen (Naproxen), 1 TAB PO Q12H Sulfamethoxazole/Trimethoprim (Bactrim Ds Tablet), 1 TAB PO Q12H Past Medical History Past Medical History: Hypertension, Chronic Pain, Chronic Back Pain Past Surgical History: no surgical history Alcohol Use: Alcoholic Drug Use: heroin Lives with: Family Lives In: Home Occupation: disabled Physical Exam Vital Signs: Source: Oral, Heart Rate: 92, Respiratory Rate: 18, BP: 154/84, Pulse Oximetry: 99, Weight: 68.000 Progress Results/Orders Results/Orders Vital Signs 04/06/25 17:59 Pulse 92 Resp 18 B/P (MAP) 154/84 Pulse Ox 99 Departure Referrals: NO PRIMARY CARE PROVIDER (PCP) Signature Attestation: The note accurately reflects work and decisions made by me.Candido Deluna MD 04/06/25 18:44 CANDIDO DELUNA MD Apr 06, 2025 18:44
== END 2025-04-06 19:16 | disposition left against medical advice (07) ==
LOC: ER 17:45
DX: R07.81 Pleurodynia (principal); Z53.21 Procedure and treatment not carried out due to patient leaving prior to being seen by health care provider

== ENCOUNTER 2025-04-08 15:44 | Emergency (ER) | payer MEDICAID ==
[~2025-04-08] VITALS: Ht 172.7 cm; Wt 55.0 kg
[2025-04-08 15:58] VITALS: BP 115/82; PULSE 90; RESP 16; TEMP 98.2; O2SAT 96
--- NOTE | 2025-04-08 16:34 | Physician Documentation ---
History of Present Illness ~ Chief Complaint: Foot pain Stated Complaint: FOOT PAIN Time Seen by MD: 15:59 Primary Medical Doctor: none HPI 65 year old male presents to the emergency department sfor complaints of foot pain. He was recently taking Bactrim. States he has a ongoing foot pain also has been amputated right 4th toe He states that his feet are in pain. Patient is intoxicated on presentation and endorses smoking and homelessness. denies fevers Day of Onset: Apr 08, 2025 Tetanus witin 5 years: Yes Medication Reconciliation Allergies: Coded Allergies: No Known Allergies (Unverified , 04/03/25) Scheduled Naproxen (Naproxen), 1 TAB PO Q12H Naproxen (Naproxen), 1 TAB PO Q12H Sulfamethoxazole/Trimethoprim (Bactrim Ds Tablet), 1 TAB PO Q12H Past Medical History Past Medical History: Hypertension, Chronic Pain, Chronic Back Pain Past Surgical History: no surgical history Alcohol Use: Alcoholic Drug Use: heroin Lives with: Family Lives In: Home Occupation: disabled Review of Systems All Other Systems at this time: Reviewed and Negative ROS As stated above in the HPI, otherwise all systems are reviewed and negative. Physical Exam Vital Signs: Temperature: 98.2, Source: Temporal, Heart Rate: 90, Respiratory Rate: 16, BP: 115/82, Pulse Oximetry: 96, Weight: 55.000 Oxygen Flow Rate: 0 Physical Exam General: Alert, no apparent distress. . Extremities: Normal range of motion, 3rd toe amputated. Multiple calluses no signs of erythema drainage or increased swelling Neurologic: Oriented x4. Psychiatric: Normal mood and affect. Skin: Normal color, warm and dry. No edema, no ecchymosis. Progress Results/Orders Results/Orders Completed Orders - CHAD COIVNGTON NP Acetaminophen 325mg Tablet (Tylenol Tabl (04/08/25 16:40) Medications Received in ER Medications (Trade) Dose Ordered Sig/Rayo Route PRN Reason Start Time Stop Time Status Last Admin Dose Admin (Tylenol tablet) 650 mg ONCE ONCE PO 04/08/25 16:40 04/08/25 16:41 DC 04/08/25 16:42 650 MG Vital Signs 04/08/25 15:58 Temp 98.2 Pulse 90 Resp 16 B/P (MAP) 115/82 Pulse Ox 96 O2 Flow Rate 0 Medical Decision Making Findings See any reason to place this patient on antibiotics. I see homelessness has been his primary indication for treatment He was provided socks, food along wit h the Tylenol for pain. General Diff Dx:Considerations: Include: Abrasion, Contusion, Fracture, Hematoma, Laceration, Malunion, Neurovascular injury, Open fracture, Sprain, Ulcer, Other Foot Diff Dx:Considerations: Include: Abrasion, Arthritis, Cellulitis, Contusion, Dislocation, DJD, Fracture-metatarsal, Fracture-phalynx, Fracture-tarsal, Gout, Hematoma, Ingrown toenail, Laceration, Malunion, Neurovascular injury, Open fracture, Paronychia, Puncture, Rheumatoid, Sprain, Septic, Subungual hematoma, Ulcer, Other Departure Disposition: 01 HOME / SELF CARE / HOMELESS Impression: Primary Impression: Foot pain Condition: Stable Discharge Instructions: Foot Pain Referrals: NO PRIMARY CARE PROVIDER (PCP) Education Educated: Patient Educated regarding: diagnosis Signature Scribe Signature: f Attestation: Scribed for Chad [place] [employer] Worker by Chad Gonzáles NP . 04/08/25 23:21 CHAD COVINGTON NP Apr 08, 2025 16:34
== END 2025-04-08 16:50 | disposition home or self-care (01) ==
LOC: ER 15:45
DX: M79.671 Pain in right foot (principal); M79.672 Pain in left foot; I10 Essential (primary) hypertension; F17.200 Nicotine dependence, unspecified, uncomplicated; Z59.00 Homelessness unspecified
CPT/HCPCS: 99283

== ENCOUNTER 2025-04-14 02:43 | Emergency (ER) | payer MEDICAID ==
[~2025-04-14] VITALS: Ht 185.4 cm; Wt 66.9 kg
[~2025-04-14 02:43] MED LIST changes: -SULF1TAB49 PO
--- NOTE | 2025-04-14 02:51 | Physician Documentation ---
History of Present Illness ~ Stated Complaint: DIFF BREATHING Time Seen by MD: 02:49 OK to notify your PCP?: Yes Primary Medical Doctor: none Source: patient, RN/MD, EMS, RN notes reviewed, EMS notes reviewed, old records Mode of Arrival: EMS Exam Limitations: no limitations HPI 65 year old male presents to emergency department brought in by EMS for complaints of shortness of breath. Per Ems the patient called them tonight because he was feeling short of breath. EMS states that he was wheezing when they picked him up tonight. He was given a duoneb treatment en route and is feeling better. Patient endorses a productive cough. [facility]. Medication Reconciliation Allergies: Coded Allergies: No Known Allergies (Unverified , 04/14/25) Scheduled Naproxen (Naproxen), 1 TAB PO Q12H Naproxen (Naproxen), 1 TAB PO Q12H Prednisone* (Prednisone*), 2 TAB PO DAILY Discontinued Medications Sulfamethoxazole/Trimethoprim (Bactrim Ds Tablet), 1 TAB PO Q12H Discontinued Reason: Auto Discontinued Past Medical History Past Medical History: Hypertension, Chronic Pain, Chronic Back Pain Past Surgical History: no surgical history Alcohol Use: Alcoholic Drug Use: heroin Lives with: Family Lives In: Home Occupation: disabled Review of Systems All Other Systems at this time: Reviewed and Negative ROS As stated above in the HPI, otherwise all systems are reviewed and negative. Physical Exam Vital Signs: RN Vital Signs have been reviewed: Yes Pulse Oximetry Reflects: adequate oxygenation Physical Exam General: The patient is well developed, well nourished, nontoxic appearing and is in no acute distress. Skin: [place], warm and dry with no rashes. HEENT: Head was normocephalic and atraumatic. Eyes - pupils equal, round, reactive to light and accommodation. Extraocular movements were intact. Conjunctivae were nonicteric. Ears - bilateral tympanic membranes were normal. The mouth and oropharynx were clear with moist mucous membranes. There were no pharyngeal exudates or erythema. Neck: Supple and nontender. There was no jugular venous distention, lymphadenopathy, thyromegaly or masses. Chest: Trace wheeze. No accessory muscle use. No dullness to percussion. Heart: Rate regular and rhythmic. S1, S2. No murmurs. Palpation of the chest wall was normal. No rubs or thrills. Abdomen: Soft, nontender and nondistended. Positive bowel sounds. No guarding or rebound. No hepatosplenomegaly or palpable masses. Extremities: No cyanosis, clubbing or edema. The patient moves all extremities. Pulses were equal and symmetric. Neurologic: Cranial nerves II-XII were intact. Sensation was intact to light touch throughout. Motor strength was 5/5 in all four extremities. Deep tendon reflexes were intact in both upper and lower extremities. Psychologic: The patient was oriented to person, place and time. The patient demonstrated appropriate judgement and insight. Progress Results/Orders Results/Orders Medications Received in ER Medications (Trade) Dose Ordered Sig/Rayo Route PRN Reason Start Time Stop Time Status Last Admin Dose Admin (SoluMEDROL 125mg inj) 125 mg ONCE ONCE IV 04/14/25 02:50 04/14/25 02:57 DC 04/14/25 03:05 125 MG Vital Signs 04/14/25 02:45 Temp 97.7 Pulse 91 Resp 16 B/P (MAP) 186/95 Pulse Ox 99 O2 Flow Rate 0 EKG/XRAY/CT/US/VASC/MRI EKG : Additional Comment CHEST RADIOGRAPH Indication: CP Technique: 1 view Comparison: None FINDINGS: Lines and Tubes: Left implanted cardiac device with leads terminating over the right atrium and right ventricle. Lungs: Mild perihilar interstitial prominence. No consolidation. Pleura: No effusion or pneumothorax. Cardiomediastinal contours: Mild cardiomegaly. Bones: No acute osseous abnormality. Uncomplicated sternotomy wires. IMPRESSION: 1. Mild heart failure pattern with implanted cardiac device. Electronically Signed by:MARLEN SINGH MD Date & Time: 04/14/25 5490 Chest X-Ray : Additional Comments CHEST RADIOGRAPH Indication: SOB Technique: 1 view Comparison: CT CTA CHEST PE W/ IV CONTRAST on DOS: 01/13/25, DI CHEST,SINGLE VIEW on DOS: 01/13/25, DI CHEST,SINGLE VIEW on DOS: 01/12/25 FINDINGS: Lines and Tubes: Overlying tubing. Lungs: No focal consolidation. Pleura: No effusion or pneumothorax. Cardiomediastinal contours: Unremarkable. Bones: No acute osseous abnormality. IMPRESSION: 1. No acute cardiopulmonary abnormality. Electronically Signed by:MARLEN SINGH MD Date & Time: 04/14/25 032 Departure Time of Disposition: 03:21 Disposition: 01 HOME / SELF CARE / HOMELESS Impression: Primary Impression: Asthma exacerbation Condition: Stable Discharge Instructions: Shortness of Breath, Adult, [id number] Referrals: NO PRIMARY CARE PROVIDER (PCP) Prescriptions Prednisone* (Prednisone*) 20 Mg Tablet 2 TAB PO DAILY, #11 TAB Prov: CANDIDO KINNEY MD 04/14/25 Education Educated: Patient Educated regarding: diagnosis, treatment, prognosis, need for follow up Signature Scribe Signature: Scribed for Candido Kinney MD by Jose Hoang . 04/14/25 03:22 Attestation: The note accurately reflects work and decisions made by me.Candido Kinney MD 04/14/25 02:51 CANDIDO KINNEY MD Apr 14, 2025 02:51 JOSE GUNDERSON Apr 14, 2025 03:25
--- NOTE | 2025-04-14 02:56 | ELECTROCARDIOGRAPH REPORT ---
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 Kirstin Kinney Measurements Intervals [place] Rate: 90 P: 86 CA: 160 QRS: -71 QRSD: 136 T: 86 QT: 384 QTc: 470 Interpretive Statements Sinus rhythm RBBB and LAFB Left ventricular hypertrophy Inferior infarct, acute Baseline wander in lead(s) I Electronically Signed On 04-14-2025 3:26:[address] Kirstin Kinney Please click the below link to view image of tracing.
[2025-04-14] MEDS ORDERED: PRED20TA PO (02:57)
--- NOTE | 2025-04-14 03:23 | RADIOLOGY REPORT ---
CHEST RADIOGRAPH Indication: SOB Technique: 1 view Comparison: CT CTA CHEST PE W/ IV CONTRAST on DOS: 01/13/25, DI CHEST,SINGLE VIEW on DOS: 01/13/25, DI CH EST,SINGLE VIEW on DOS: 01/12/25 FINDINGS: Lines and Tubes: Overlying tubing. Lungs: No focal consolidation. Pleura: No effusion or pneumothorax. Cardiomediastinal contours: Unremarkable. Bones: No acute osseous abnormality. IMPRESSION: 1. No acute cardiopulmonary abnormality.
[2025-04-14 03:42] VITALS: BP 175/88; PULSE 85; RESP 16; TEMP 98; O2SAT 97
== END 2025-04-14 03:43 | disposition home or self-care (01) ==
LOC: ER 02:44
DX: J45.901 Unspecified asthma with (acute) exacerbation (principal); I10 Essential (primary) hypertension; F11.90 Opioid use, unspecified, uncomplicated; F10.90 Alcohol use, unspecified, uncomplicated; Z59.00 Homelessness unspecified; Z79.899 Other long term (current) drug therapy; Y90.9 Presence of alcohol in blood, level not specified
CPT/HCPCS: 71045; 93005; 96374; 99283; J2919

== ENCOUNTER 2025-04-17 11:58 | Emergency (ER) | payer MEDICAID ==
[~2025-04-17] VITALS: Ht 185.4 cm; Wt 68.6 kg
[~2025-04-17 11:58] MED LIST changes: +PRED20TA PO
[2025-04-17 12:07] VITALS: BP 97/52; PULSE 98; RESP 24; TEMP 97.8; O2SAT 95
== END 2025-04-17 12:56 | disposition left against medical advice (07) ==
LOC: ER 11:58
DX: R06.02 Shortness of breath (principal); Z53.21 Procedure and treatment not carried out due to patient leaving prior to being seen by health care provider

== ENCOUNTER 2025-04-18 17:47 | Emergency (ER) | payer MEDICAID ==
--- NOTE | 2025-04-18 18:39 | Physician Documentation ---
History of Present Illness Stated Complaint: FEET PAIN Primary Medical Doctor: none HPI Patient is a 65-year-old man that presents to the emergency department requesting a breathing treatment and have his legs evaluated. To specifically say what he would like to have evaluated about his legs at this time. Left leg demonstrates old healed wounds no concern for infection at this time. Patient denies any issues with his right leg. Medication Reconciliation Allergies: Coded Allergies: No Known Allergies (Unverified , 04/17/25) Scheduled Naproxen (Naproxen), 1 TAB PO Q12H Naproxen (Naproxen), 1 TAB PO Q12H Prednisone* (Prednisone*), 2 TAB PO DAILY Discontinued Medications Sulfamethoxazole/Trimethoprim (Bactrim Ds Tablet), 1 TAB PO Q12H Discontinued Reason: Auto Discontinued Past Medical History Past Medical History: Hypertension, Chronic Pain, Chronic Back Pain Past Surgical History: no surgical history Alcohol Use: Alcoholic Drug Use: heroin Lives with: Family Lives In: Home Occupation: disabled Departure Referrals: NO PRIMARY CARE PROVIDER (PCP) LUCIE BLUNT Apr 18, 2025 18:39
--- NOTE | 2025-04-18 18:54 | ELECTROCARDIOGRAPH REPORT ---
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
--- NOTE | 2025-04-18 19:01 | RADIOLOGY REPORT ---
CHEST RADIOGRAPH Indication: acs Technique: DI CHEST,TWO VIEWS Comparison: None FINDINGS: The cardiac silhouette is unremarkable. The lungs demonstrate no pulmonary airspace consolidation. Th e pulmonary vasculature is unremarkable. There is no pleural effusion. There is no pneumothorax. The re is [id number] thoracic degenerative disc disease. Old posterior right 6th rib fracture. IMPRESSION: No pulmonary airspace consolidation.
[2025-04-19 00:41] VITALS: BP 179/96; PULSE 104; RESP 18; TEMP 97.8; O2SAT 98
[2025-04-19] MEDS ORDERED: SULF1TAB49 PO (09:58)
[2025-04-19] MEDS ORDERED: IBUP600T52 PO (09:58)
== END 2025-04-19 03:35 | disposition left against medical advice (07) ==
LOC: ER 17:49
DX: I10 Essential (primary) hypertension (principal); F10.90 Alcohol use, unspecified, uncomplicated; F11.90 Opioid use, unspecified, uncomplicated; Z79.899 Other long term (current) drug therapy; Y90.9 Presence of alcohol in blood, level not specified; Z53.21 Procedure and treatment not carried out due to patient leaving prior to being seen by health care provider
CPT/HCPCS: 71046; 93005

== ENCOUNTER 2025-04-19 04:22 | Emergency (ER) | payer MEDICAID ==
[~2025-04-19] VITALS: Ht 185.4 cm; Wt 215.0 kg
--- NOTE | 2025-04-19 07:26 | Physician Documentation ---
History of Present Illness General Chief Complaint: Foot pain Stated Complaint: FEET PAIN Time Seen by MD: 07:13 Primary Medical Doctor: none History of Present Illness Initial Comments The patient is a 65-year-old male with a history of hypertension and recent homelessness who presents with left foot pain. 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 Medication Reconciliation Allergies: Coded Allergies: No Known Allergies (Unverified , 04/18/25) Scheduled Naproxen (Naproxen), 1 TAB PO Q12H Naproxen (Naproxen), 1 TAB PO Q12H Prednisone* (Prednisone*), 2 TAB PO DAILY Discontinued Medications Sulfamethoxazole/Trimethoprim (Bactrim Ds Tablet), 1 TAB PO Q12H Discontinued Reason: Auto Discontinued Past Medical History Past Medical History: Hypertension, Chronic Pain, Chronic Back Pain Past Surgical History: no surgical history Smoking: Cigarettes Alcohol Use: Alcoholic Drug Use: heroin Lives with: Family Lives In: Home Occupation: disabled Review of Systems ROS Constitutional: Denies chills, fatigue, fever, weight gain or weight loss. HEENT: Denies hearing loss, sinus pressure or visual changes. Respiratory: Denies cough, shortness of breath or wheezing. Cardiovascular: Denies chest pain, pain while walking (claudication), edema or palpitations. Gastrointestinal: Denies abdominal pain, blood in stool, constipation, diarrhea, heartburn, loss of appetite, nausea or vomiting. Genitourinary: Denies painful urination (dysuria), excessive amount of urine (polyuria) or urinary frequency. Metabolic/Endocrine: Denies cold intolerance, heat intolerance, excessive thirst (polydipsia) or excessive hunger (polyphagia). Neurological: Denies dizziness, extremity numbness, extremity weakness, headaches, seizures or tremors. Psychiatric: Denies anxiety or depression. Integumentary: Denies breast discharge, breast lump, hives, mole change(s), ra sh or skin lesion. Musculoskeletal: Left foot pain around the 1st MTP and 1st and 2nd toes Hematologic: Denies easily bleeding, easily bruises, lymphedema or issues with blood clots. Immunologic: Denies food allergies or seasonal allergies. Physical Exam Physical Exam Vital Signs: Temperature: 99.1, Source: Temporal, Heart Rate: 102, Respiratory Rate: 18, BP: 168/97, Pulse Oximetry: 99, Weight: 215.000 Oxygen Flow Rate: 0 Physical Exam Physical Exam Vitals and nursing note reviewed. Constitutional: General: Patient is awake, alert, oriented x 4 in no acute distress and well appearing. Speech is clear and lucid. Appearance: Normal appearance. Patient is not ill-appearing, toxic-appearing or diaphoretic. HENT: Head: Normocephalic and atraumatic. Mouth/Throat: Mouth: Mucous membranes are moist. Pharynx: Oropharynx is clear. Eyes: General: No scleral icterus. Extraocular Movements: Extraocular movements intact. Pupils: Pupils are equal, round, and reactive to light. Neck: Supple, no Kernig or Brudzinski sign. Cardiovascular: Rate and Rhythm: Normal rate and regular rhythm. Heart sounds: No murmur heard. Pulmonary: Effort: No respiratory distress. Breath sounds: No wheezing, rhonchi or rales. Abdominal: General: There is no distension. Palpations: There is no fluid wave, hepatomegaly or mass. Tenderness: There is no abdominal tenderness. There is no guarding. Musculoskeletal: General: There is mild to moderate erythema involving the left great, 2nd and 3rd toes. 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 Findings: No erythema or rash. Neurological: Mental Status: Patient is alert. Progress Results/Orders Results/Orders Orders - SAPNA GURROLA MD, Complete (3vw Min) (04/19/25 07:38) Completed Orders - SAPNA GURROLA MD, Complete (3vw Min) (04/19/25 07:38) Bmp Er (04/19/25 07:21) Cbc/Diff (04/19/25 07:21) ESR (04/19/25 07:21) C-Reactive Protein (04/19/25 07:21) LA (04/19/25 07:21) Uric Acid (04/19/25 07:21) MG (04/19/25 07:21) Vital Signs 04/19/25 04/19/25 04:31 07:48 Temp 99.1 97.9 Pulse 102 109 Resp 18 16 B/P (MAP) 168/97 175/93 (120) Pulse Ox 99 98 O2 Flow Rate 0 0 Laboratory Tests Test 04/19/25 07:30 White Blood Count 6.7 Red Blood Count 4.55 L Hemoglobin 14.2 Hematocrit 42.5 Mean Corpuscular Volume 93.2 Mean Corpuscular Hemoglobin 31.3 H Mean Corpuscular Hemoglobin Concent 33.5 Red Cell Distribution Width 15.2 H Platelet Count 244 Mean Platelet Volume 6.8 L Neutrophils (%) (Auto) 73.0 Lymphocytes (%) (Auto) 11.3 L Monocytes (%) (Auto) 14.5 H Eosinophils (%) (Auto) 0.7 Basophils (%) (Auto) 0.5 Neutrophils # (Auto) 4.9 Lymphocytes # (Auto) 0.8 L Monocytes # (Auto) 1.0 H Eosinophils # (Auto) 0.0 Basophils # (Auto) 0.0 CBC Comment Erythrocyte Sedimentation Rate 12 Sodium Level 141 Potassium Level 3.6 Chloride Level 100 Carbon Dioxide Level 31.5 Anion Gap 10 Blood Urea Nitrogen 29 H Creatinine 0.91 Estimated GFR/1.73 m2 83 BUN/Creatinine Ratio 31.9 H Glucose Level 81 Lactic Acid Level 1.3 Uric Acid 8.1 H Calcium Level 9.5 Magnesium Level 1.9 C-Reactive Protein 0.39 Albumin 3.8 Chemistry Comments Medical Decision Making Findings The patient is a 65-year-old male who presents with early cellulitis involving 1st and 2nd toes of his left foot. Laboratory data are reassuring. I am going to start the patient on antibiotics and have him follow-up with his PCP. Departure Disposition: HOME / SELF CARE / HOMELESS Impression: Primary Impression: Cellulitis Condition: Stable Referrals: NO PRIMARY CARE PROVIDER (PCP) Prescriptions Ibuprofen (Ibuprofen) 600 Mg Tablet 1 TAB PO Q6H PRN for pain, #30 TABLET Prov: SAPNA GURROLA MD 04/19/25 Sulfamethoxazole/Trimethoprim (Bactrim Ds Tablet) 800 Mg-160 Mg Tablet 1 TAB PO Q12H for 10 Days, #20 TAB Prov: SAPNA GURROLA MD 04/19/25 Signature Scribe Signature: . Attestation: . SAPNA GURROLA MD Apr 19, 2025 07:26
--- NOTE | 2025-04-19 07:51 | RADIOLOGY REPORT ---
EXAM: DI FOOT, COMPLETE (3VW MIN) HISTORY: Erythema, pain,LEFT COMPARISON: DI FOOT, COMPLETE (3VW MIN) on DOS: 04/05/25, DI FOOT, COMPLETE (3VW MIN) on DOS: 01/10/25 TECHNIQUE: DI FOOT, COMPLETE (3VW MIN) FINDINGS: BONES: Patient is status post bunionectomy. Persistent Hallux valgus. No acute fracture dislocation. There is a heel spur. Soft tissues are unremarkable. IMPRESSION: 1. Bunionectomy. Persistent Hallux valgus. No acute fracture or dislocation.
[2025-04-19 07:53] LABS: MEAN PLATELET VOLUME 6.8 FL (7.4-10.4); RED CELL DISTRIBUTION WIDTH 15.2 % (11.5-14.5)
[2025-04-19 08:03] LABS: CREATININE 0.91 MG/DL (0.60-1.10); TOTAL CARBON DIOXIDE 31.5 MMOL/L (24-32); eCRCL 90 ML/MIN; eGFR 83 ML/MIN
[2025-04-19] MEDS ORDERED: IBUP-1985 PO (09:58)
[2025-04-19] MEDS ORDERED: SULF1TAB49 PO (09:58)
[2025-04-19 10:05] VITALS: BP 169/86; PULSE 100; RESP 18; TEMP 97.9; O2SAT 99
== END 2025-04-19 10:06 | disposition home or self-care (01) ==
LOC: ER 04:23
DX: L03.116 Cellulitis of left lower limb (principal); I10 Essential (primary) hypertension; F10.90 Alcohol use, unspecified, uncomplicated; F11.90 Opioid use, unspecified, uncomplicated; F17.210 Nicotine dependence, cigarettes, uncomplicated; Y90.9 Presence of alcohol in blood, level not specified; Z79.899 Other long term (current) drug therapy
CPT/HCPCS: 36415; 73630; 80048; 83605; 83735; 84550; 85025; 85651; 86140; 99284

== ENCOUNTER 2025-05-15 22:09 | Emergency (ER) | payer MEDICAID ==
[~2025-05-15] VITALS: Ht 185.4 cm; Wt 64.8 kg
[~2025-05-15 22:09] MED LIST changes: +IBUP600T52 PO
--- NOTE | 2025-05-16 04:09 | Physician Documentation ---
History of Present Illness ~ Chief Complaint: Foot pain Stated Complaint: R FOOT PAIN Time Seen by MD: 03:51 OK to notify your PCP?: Yes Primary Medical Doctor: none Source: patient, RN/MD, RN notes reviewed, old records Mode of Arrival: POV Exam Limitations: no limitations HPI This patient is a 65 y/o male who presents to ED with chief complaint of right foot pain. Patient reports this pain has been worsening over the past week. He also complains of dry, cracked skin, but states that this is chronic. Patient does not have a primary care doctor established here. He is requesting pain medication refill for his foot pain. Tetanus witin 5 years: No (Didnt ask) Medication Reconciliation Allergies: Coded Allergies: No Known Allergies (Unverified , 05/15/25) Scheduled Naproxen (Naproxen), 1 TAB PO Q12H Scheduled PRN Ibuprofen (Ibuprofen), 1 TAB PO Q6H PRN for pain Discontinued Medications Prednisone* (Prednisone*), 2 TAB PO DAILY Discontinued Reason: Auto Discontinued Past Medical History Past Medical History: Hypertension, Chronic Pain, Chronic Back Pain Past Surgical History: no surgical history Smoking Status: Current every day smoker Alcohol Use: Alcoholic Drug Use: heroin Lives with: Family Lives In: Home Occupation: disabled Review of Systems All Other Systems at this time: Reviewed and Negative ROS As stated above in the HPI, otherwise all systems are reviewed and negative. Physical Exam Vital Signs: RN Vital Signs have been reviewed: Yes, Temperature: 98.7, Source: Oral, Heart Rate: 126, Respiratory Rate: 16, BP: 155/95, Pulse Oximetry: 93, Weight: 64.800 Oxygen Flow Rate: 0 Physical Exam General: The patient is disheveled, unkept, well developed, well nourished, nontoxic appearing and is in no acute distress. Skin: [place], warm and dry with no rashes. HEENT: Head was normocephalic and atraumatic. Eyes - pupils equal, round, reactive to light and accommodation. Extraocular movements were intact. Conjunctivae were nonicteric. Ears - bilateral tympanic membranes were normal. The mouth and oropharynx were clear with moist mucous membranes. There were no pharyngeal exudates or erythema. Neck: Supple and nontender. There was no jugular venous distention, lymphadenopathy, thyromegaly or masses. Chest: Clear to auscultation bilaterally without wheezes, rales or rhonchi. No accessory muscle use. No dullness to percussion. Heart: Rate regular and rhythmic. S1, S2. No murmurs. Palpation of the chest wall was normal. No rubs or thrills. Abdomen: Soft, nontender and nondistended. Positive bowel sounds. No guarding or rebound. No hepatosplenomegaly or palpable masses. Extremities: RLE: Dry scaly skin to right foot. Right toe amputation. Mild erythema distally. Otherwise: No cyanosis, clubbing or edema. The patient moves all extremities. Pulses were equal and symmetric. Neurologic: Cranial nerves II-XII were intact. Sensation was intact to light touch throughout. Motor strength was 5/5 in all four extremities. Deep tendon reflexes were intact in both upper and lower extremities. Psychologic: The patient was oriented to person, place and time. The patient demonstrated appropriate judgement and insight. Progress Results/Orders Reviewed/noted all lab results: Yes Results/Orders Completed Orders - KIRSTIN DELUNA MD Naproxen Tablet (Naprosyn Tablet) (05/16/25 04:10) Vital Signs 05/15/25 22:32 Temp 98.7 Pulse 126 Resp 16 B/P (MAP) 155/95 Pulse Ox 93 O2 Flow Rate 0 Re-Evaluation Re-Evaluation : Re-Evaluation: Unchanged Progress This patient was given naproxen despite having chronic issues no acute findings were seen. Patient is not interested in seeing a primary care physician. He is requesting chronic pain medication refills. Patient is complaining of foot pain there appears to be no new findings. He has some dried skin and some erythema to his distal toes. Patient has a prior amputation of the great toe. Patient appears well he is unkempt he was discharged home without any prescriptions and information was provided to the patient so that he can established relationships with primary care physician. Patient appeared uninterested Medical Decision Making Additional info obtained from: old records Foot Diff Dx:Considerations: Include: Abrasion, Arthritis, Cellulitis, Contusion, Gout, Sprain, Other Departure Time of Disposition: 04:10 Disposition: 01 HOME / SELF CARE / HOMELESS Impression: Primary Impression: Right foot pain Additional Impression: Medical non-compliance Condition: Stable Discharge Instructions: Foot Pain Additional Instructions: It is important to establish a primary care doctor here in [place] as soon as possible. Please follow up with [facility] to get established for further evaluation. Referrals: NO PRIMARY CARE PROVIDER (PCP) Education Educated: Patient Educated regarding: diagnosis, treatment, need for follow up Signature Scribe Signature: Scribed for Kirstin Deluna MD by Louisa Schmitz. 05/16/25 04:37 Attestation: The note accurately reflects work and decisions made by me.Kirstin Deluna MD 05/16/25 04:09 KIRSTIN DELUNA MD May 16, 2025 04:09
[2025-05-16 05:00] VITALS: BP 151/97; PULSE 110; RESP 16; TEMP 98.4; O2SAT 98
== END 2025-05-16 05:03 | disposition home or self-care (01) ==
LOC: ER 22:09
DX: M79.671 Pain in right foot (principal); Z91.199 Patient's noncompliance with other medical treatment and regimen due to unspecified reason; I10 Essential (primary) hypertension; F17.200 Nicotine dependence, unspecified, uncomplicated; F10.90 Alcohol use, unspecified, uncomplicated; Y90.9 Presence of alcohol in blood, level not specified
CPT/HCPCS: 99283

== ENCOUNTER 2025-05-20 18:25 | Emergency (ER) | payer MEDICAID ==
[~2025-05-20 18:25] MED LIST changes: -PRED20TA PO
== END 2025-05-20 19:53 | disposition left against medical advice (07) ==
LOC: ER 18:25
DX: Z00.00 Encounter for general adult medical examination without abnormal findings (principal); Z53.21 Procedure and treatment not carried out due to patient leaving prior to being seen by health care provider

== ENCOUNTER 2025-07-04 17:56 | Emergency (ER) | payer MEDICAID ==
[~2025-07-04] VITALS: Ht 185.4 cm; Wt 63.6 kg
--- NOTE | 2025-07-04 19:15 | Physician Documentation ---
History of Present Illness ~ Chief Complaint: Cold, cough & congestion Stated Complaint: COLD SYMPTOMS Time Seen by MD: 18:52 Primary Medical Doctor: none HPI This is a 65-year-old male with history of COPD and 50 pack year smoking history who presents with four days of productive cough and general malaise, additionally patient reports right lower dental pain. Patient reports no subjective fever. Patient reports no other acute symptoms or concerns. Patient reports meth use last week. Medication Reconciliation Allergies: Coded Allergies: No Known Allergies (Unverified , 07/04/25) Scheduled Ciprofloxacin HCl (Ciprofloxacin HCl), 1 TAB PO Q12H Naproxen (Naproxen), 1 TAB PO Q12H Scheduled PRN Ibuprofen (Ibuprofen), 1 TAB PO Q6H PRN for pain Past Medical History Past Medical History: Hypertension, COPD, Chronic Pain, Chronic Back Pain Past Surgical History: no surgical history Alcohol Use: Alcoholic Drug Use: heroin Lives with: Family Lives In: Home Occupation: disabled Review of Systems ROS As stated above in the HPI, otherwise all systems are reviewed and negative. Physical Exam Vital Signs: Temperature: 97.8, Source: Oral, Heart Rate: 130, Respiratory Rate: 18, BP: 133/81, Pulse Oximetry: 94, Weight: 63.600 Physical Exam VITALS: Reviewed and as above. GENERAL: Alert, nontoxic appearing, no apparent distress. Disheveled appearance HEENT: Right lower gingiva no erythema or swelling, pharynx nonerythematous, uvula midline, no tonsillar swelling, no elevation of the tongue, no submandibular swelling RESPIRATORY: No increased work of breathing, no respiratory distress, speaking in full clear sentences, rhonchi in all lung dia CV: Regular rate and rhythm no murmur BACK: Nontender to palpation MUSCULOSKELETAL: SKIN: Warm and dry NEURO: GCS 15 Progress Results/Orders Results/Orders Orders - RAJEEV GUSTAFSON Culture Blood (07/04/25 18:59) Saline Lock (07/04/25 18:59) Oxygen (07/04/25 18:59) Chest,Single View (07/04/25 18:54) Completed Orders - RAJEEV GUSTAFSON Cbc/Diff (07/04/25 18:59) BMP (07/04/25 18:59) PBNP (07/04/25 18:59) Lacticsepsis (07/04/25 18:59) Chest,Single View (07/04/25 18:54) D-Dimer (07/04/25 20:43) Man Diff (07/04/25 20:02) Vital Signs 07/04/25 07/04/25 07/04/25 18:11 20:30 22:20 Temp 97.8 97.8 97.8 Pulse 130 100 Resp 18 18 B/P (MAP) 133/81 147/87 (107) Pulse Ox 94 94 Laboratory Tests Test 07/04/25 20:02 07/04/25 20:52 White Blood Count 7.4 Red Blood Count 4.44 L Hemoglobin 14.0 Hematocrit 40.6 L Mean Corpuscular Volume 91.4 Mean Corpuscular Hemoglobin 31.5 H Mean Corpuscular Hemoglobin Concent 34.4 Red Cell Distribution Width 14.3 Platelet Count 223 Mean Platelet Volume 7.3 L Neutrophils (%) (Auto) 73.5 Lymphocytes (%) (Auto) 10.1 L Monocytes (%) (Auto) 15.2 H Eosinophils (%) (Auto) 0.6 Basophils (%) (Auto) 0.6 Neutrophils # (Auto) 5.4 Lymphocytes # (Auto) 0.7 L Monocytes # (Auto) 1.1 H Eosinophils # (Auto) 0.0 Basophils # (Auto) 0.0 CBC Comment Differential Total Cells Counted 100 Neutrophils % (Manual) 75.0 Lymphocytes % (Manual) 10.0 L Monocytes % (Manual) 15.0 H Platelet Estimate Normal Red Blood Cell Morphology Normal Basophilic Stippling Sodium Level 134 L Potassium Level 3.9 Chloride Level 98 L Carbon Dioxide Level 30.8 Anion Gap 5 L Blood Urea Nitrogen 24 H Creatinine 0.88 Estimated GFR/1.73 m2 87 BUN/Creatinine Ratio 27.3 H Glucose Level 103 Lactic Acid Level 0.8 Calcium Level 9.1 Pro-B-Type Natriuretic Peptide 3666 H Albumin 3.2 L Chemistry Comments D-Dimer 0.73 H D-Dimer Comment Microbiology Date/Time Source Procedure Growth Status 07/04/25 20:02 Blood Arm Left Blood Culture - Preliminary NEGATIVE (LESS THAN 24 HOURS) Resulted Medical Decision Making Additional information obtaine: old records Findings This 65-year-old male with history of COPD and significant smoking history presented four days of productive cough, sore throat, and general malaise with the additional concern for right lower dental pain. On exam patient was found to have scattered rhonchi in all dia, chest x-ray did not demonstrate evidence of focal consolidation to suggest pneumonia, patient was found to be tachycardic however otherwise afebrile and hemodynamically stable with no evidence of hypoxia. Remainder of physical exam benign patient was otherwise well. I suspect symptoms likely related to exacerbation of chronic COPD secondary to upper respiratory tract infection. Lab work demonstrated elevated proBNP he with concern for heart strain a D-dimer was ordered to assess for pulmonary embolism, case signed out to attending ED MD Dr. Ramirez. Differential Dx:Considerations: Include: Allergic rhinitis, Influenza, Peritonsillar abscess, Pharyngitis-Diphtheria, Pharyngitis-Streptoccal, Pharyngitis-Viral, Pneumonia, Pnuemonitis, Sinusitis, URI, Other (Pasquale's angina, dental abscess) Departure Disposition: HOME / SELF CARE / HOMELESS Impression: Primary Impression: COPD exacerbation Additional Impression: Bronchitis Condition: Improved Discharge Instructions: Acute Bronchitis, Adult Additional Instructions: Please take antibiotics and steroids as prescribed. Please follow up with [facility] or your primary care provider in the next few days. Please return to the emergency department for any new or worsening concerning symptoms. Referrals: NO PRIMARY CARE PROVIDER (PCP) Prescriptions Ciprofloxacin HCl (Ciprofloxacin HCl) 500 Mg Tab 1 TAB PO Q12H for 7 Days, #14 TAB Prov: RADHA RAMIREZ MD 07/04/25 Education Educated: Patient Educated regarding: diagnosis, treatment, prognosis Signature Scribe Signature: No scribe Attestation: The note accurately reflects work and decisions made by me.GIAN Celestin 07/05/25 11:19 Parts of this note were created using [employer] voice recognition software program. While efforts were made to correct any mistakes made by this voice recognition software program, nonsensical phrases may remain in this note. In addition, there may be errors and syntax, grammar, content and spelling. RAJEEV GUSTAFSON Jul 04, 2025 19:15
--- NOTE | 2025-07-04 19:46 | RADIOLOGY REPORT ---
CHEST RADIOGRAPH Indication: Cough Technique: Single frontal view of the chest was obtained Comparison: DI CHEST,TWO VIEWS on DOS: 04/18/25, DI CHEST,SINGLE VIEW on DOS: 04/14/25, CT CTA CHEST PE W/ IV CONTRAST on DOS: 01/13/25, DI CHEST,SINGLE VIEW on DOS: 01/13/25, DI CHEST,SINGLE VIEW on DOS: 01/12/25 FINDINGS: Lines and Tubes: None Lungs: No focal consolidation. Pleura: No effusion. No pneumothorax. Cardiomediastinal contours: Unremarkable Bones: No acute osseous abnormality. IMPRESSION: No acute cardiopulmonary disease.
[2025-07-04 20:20] LABS: MEAN PLATELET VOLUME 7.3 FL (7.4-10.4); RED CELL DISTRIBUTION WIDTH 14.3 % (11.5-14.5)
[2025-07-04 20:30] VITALS: BP 147/87; PULSE 100; RESP 18; O2SAT 94
[2025-07-04 20:30] LABS: CREATININE 0.88 MG/DL (0.60-1.10); PRO BRAIN NATRIURETIC PEPTIDE 3666 PG/ML (0-125); TOTAL CARBON DIOXIDE 30.8 MMOL/L (24-32); eCRCL 74 ML/MIN; eGFR 87 ML/MIN
[2025-07-04 21:32] LABS: LYMPHOCYTES % (MANUAL) 10.0 % (21-51); MONOCYTES % (MANUAL) 15.0 % (2-12); NEUTROPHILS % (MANUAL) 75.0 % (42-75); PLATELET ESTIMATE NORMAL
[2025-07-04] MEDS ORDERED: ciprofloxacin 250mg tablet PO ONE (22:15)
[2025-07-04] MEDS ORDERED: CIPR-458 PO (22:15)
[2025-07-04 22:20] VITALS: TEMP 97.8
== END 2025-07-04 22:27 | disposition home or self-care (01) ==
LOC: ER 17:57
DX: J44.1 Chronic obstructive pulmonary disease with (acute) exacerbation (principal); J40 Bronchitis, not specified as acute or chronic; I10 Essential (primary) hypertension; F15.90 Other stimulant use, unspecified, uncomplicated; F11.90 Opioid use, unspecified, uncomplicated; F10.90 Alcohol use, unspecified, uncomplicated; Y90.9 Presence of alcohol in blood, level not specified
CPT/HCPCS: 36415; 71045; 80048; 83605; 83880; 85007; 85025; 85379; 87040; 99284